=== PATIENT | female | born 1975 | race American Indian/Alaskan Native ===

== ENCOUNTER 2016-12-14 08:34 | Outpatient (CLI) | payer OTHER ==
--- NOTE | 2016-12-14 11:54 | Ultrasound Report ---
RIGHT BREAST ULTRASOUND: 12/14/16 08:34:00 CLINICAL: Right nipple discharge. A surgical duct excision is planned. COMPARISON: 11/29/16 right mammogram. FINDINGS: Ultrasound of the right breast(including all four quadrants and the retroareolar area) was performed. Moderate duct ectasia is identified in the lower outer quadrant. Branching dilated ducts at 8:30 o'clock 3 cm from the nipple contain either echogenic debris or mass. No definitive blood flow is identified by color Doppler. The longest duct containing echogenic material or mass measures 3 cm in length. IMPRESSION: Moderate duct ectasia and intraductal debris versus mass. BI-RADS 4--Suspicious RECOMMENDATION: Surgical excisional biopsy because of the proximity of the dilated ducts to the nipple. I discussed the findings and my recommendation with Dr. Best on 12/14/16.
== END 2016-12-14 08:35 | disposition home or self-care (01) ==
LOC: SPVWC 08:34
PROVIDERS: ATTEND Surgery
DX: N64.52 Nipple discharge (principal)

== ENCOUNTER 2017-01-05 06:14 | Day surgery (SDC) | payer OTHER ==
[~2017-01-05 06:14] MED LIST: NACL 0.9% 1000 ML 1,000 ML IV SCH; PEPCID PO NR; VERSED IV NR
[2017-01-05] MEDS ORDERED: XYLOCAINE MPF 2% ONE (06:34)
[2017-01-05] MEDS ORDERED: DIPRIVAN 10 MG/ML IV ONE (06:34)
[2017-01-05] MEDS ORDERED: DILAUDID ONE (06:35)
--- NOTE | 2017-01-05 06:52 | Anesthesia Day of Surgery ---
Anesthesia Day of Surgery - Day of Surgery Patient Examined: Yes Patient H&P Reviewed: Yes Patient is NPO: Yes
--- NOTE | 2017-01-05 06:54 | Anesthesia Consultation ---
Anesthesia Consult and Med Hx - Airway Anesthetic Teeth Evaluation: Good, Bridges ROM Head & Neck: Adequate Mental/Hyoid Distance: Adequate Mallampati Class: Class II Intubation Access Assessment: Probably Good - Pulmonary Exam CTA: Yes - Cardiac Exam Cardiac Exam: RRR - Pre-Operative Health Status ASA Pre-Surgery Classification: ASA2 Proposed Anesthetic Plan: General - Pulmonary Hx Smoking: No Hx Sleep Apnea: No - Cardiovascular System Hx Heart Murmur: Yes (hx of) - Central Nervous System Hx Psychiatric Problems: No - Endocrine Hx Hypothyroidism: Yes - Hematic Hx Anemia: Yes (BEFORE VIVI IN 2014) - Other Systems Hx Cancer: No - Additional Comments Anesthesia Medical History Comments: Npo after MN. Pt states PONV after hysterectomy. Hypothyroidism.
[2017-01-05] MEDS ORDERED: TRANSDERM-SCOP TD NR (07:00)
[2017-01-05] MEDS ORDERED: XYLOCAINE 1% 20 mL ONE (07:27)
[2017-01-05] MEDS ORDERED: MARCAINE 0.25% INFILTRATI ONE ×2 (07:27→08:29)
[2017-01-05] MEDS ORDERED: ZOFRAN IV PRN (07:49)
[2017-01-05] MEDS ORDERED: NORCO 5/325 PO PRN ×2 (07:49→10:58)
[2017-01-05] MEDS ORDERED: DILAUDID IV PRN (07:49)
[2017-01-05] MEDS ORDERED: ANCEF/STERILE WATER 2 GM/20 ML 2 GM/20 ML SYRINGE IV NR (08:00)
[2017-01-05] MEDS ORDERED: XYLOCAINE 1% 20 mL INFILTRATI ONE (08:30)
[2017-01-05] MEDS ORDERED: NACL 0.9% IR ONE (08:30)
--- NOTE | 2017-01-05 09:39 | Short Stay Summary ---
Short Stay Documentation Date of service: 01/05/17 - History H&P: obtained from office - Allergies and Medications Current Medications: Allergies No Known Allergies Allergy (Verified 01/04/17 13:40) Home Medications Medication Instructions Recorded Confirmed Last Taken Type Estradiol [Estrace] 1 mg PO QDAY 12/30/16 01/05/17 01/04/17 History Levothyroxine [Synthroid] 100 mcg PO QAM 12/30/16 01/05/17 01/05/17 History HYDROcodone/APAP 5-325 [[place] 1 each PO Q6HR PRN #30 tablet 01/05/17 Unknown Rx 5/325] Active Medications Famotidine (Pepcid) 20 mg PO PREOP NR Stop: 01/05/17 23:01 Last Admin: 01/05/17 07:47 Dose: 20 mg Hydromorphone HCl (Dilaudid) 0.5 mg IV Q10MIN PRN PRN Reason: Pain , Severe (7-10) Stop: 01/05/17 15:00 Sodium Chloride (Nacl 0.9% 1000 Ml) 1,000 mls @ 75 mls/hr IV DIRECT DOM Last Admin: 01/05/17 07:43 Dose: 75 mls/hr Midazolam HCl (Versed) 2 mg IV PREOP NR Stop: 01/05/17 23:59 Last Admin: 01/05/17 07:52 Dose: 2 mg Scopolamine (Transderm-Scop) 1 each TD PREOP NR Stop: 01/05/17 22:47 Last Admin: 01/05/17 07:47 Dose: 1 each - Brief post op/procedure progress note Date of procedure: 01/05/17 Pre-op diagnosis: Right bloody nipple discharge Post-op diagnosis: same Procedure: Right nipple terminal duct excisional biopsy Anesthesia: GETA Findings: Right nipple discharge at the 9:00 position with terminal duct excisional biopsy performed Surgeon: RUSLAN BUSTILLO Estimated blood loss: minimal Pathology: list (right nipple terminal duct excisional biopsy) Specimen disposition: to lab Condition: stable - Disposition Condition at discharge: Good Disposition: DC-01 TO HOME OR SELFCARE Short Stay Discharge Plan Activity: other (no heavy lifting) Diet: regular Wound: other (keep incision clean and dry; may shower in 24 hours; no baths, pools or lakes; do not rub or scrub incision) Follow up with: PRIMARY MD ANIL [Primary Care Provider] - 7 Days RUSLAN BUSTILLO MD [Staff Physician] - 7 Days Prescriptions: HYDROcodone/APAP 5-325 [[place] 5/325] 1 each PO Q6HR PRN #30 tablet PRN Reason: Pain
--- NOTE | 2017-01-05 09:46 | Operative Report ---
Operative Report Operative Report: Date of procedure: 01/05/2017 Pre-operative diagnosis: Right bloody nipple discharge Post-operative diagnosis: Same Procedure name(s): Right nipple terminal duct excisional biopsy Surgeon: Alma Best M.D. Anesthesia: Gen. Findings: Known right nipple discharge at the 9 o'clock position: Complications: None Estimated blood loss: Minimal disposition: PACU in good condition Indications for operative procedure: This is a premenopausal 41-year-old -[place] lady with recent findings of right spontaneous bloody nipple discharge. Patient had right diagnostic mammogram and ultrasound with findings of probable debris within dilated ducts of the right nipple and recommendation for excision. Patient wished to proceed with the above procedure. Procedure in detail: The patient was taken to the operating room and was laid supine. Gen. anesthesia was administered. The right breast was prepped and draped in the normal sterile operative fashion. Timeout was performed. Discharge was noted without palpation. A lacrimal probe was inserted into the duct with discharge. A periareolar incision was made with 15 blade knife with dissection taken down to the subcutaneous tissues. First began with dissecting breast tissue posterior to the nipple and taken down posteriorly. The duct of concern was identified and dissected free with the aid of Bovie cautery. Specimen was marked noting the terminal duct. Hemostasis was obtained. Breast cavity was then anesthetized with 1% lidocaine and 0.25% Marcaine. Breast cavity was irrigated and suctioned. The subcutaneous tissues were approximated and closed using interrupted 3-0 Vicryl and skin brought together and closed using a running 4-0 Monocryl followed by skin affix. She tolerated surgery very well and was awakened from anesthesia without any complication and transferred to PACU in good condition.
[2017-01-05] MEDS ORDERED: DECADRON ONE (10:09)
[2017-01-05] MEDS ORDERED: ZOFRAN ONE (10:09)
--- NOTE | 2017-01-05 10:20 | Post Anesthesia Evaluation ---
- Post Anesthesia Evaluation Patient Participated: Yes Airway Patent: Yes Stable Respiratory Function: Yes Nausea/Vomiting: No Temp > 96.8F: Yes Pain Manageable: Yes Adequeate Hydration: Yes Anesthesia Complications: No Block Receding Appropriately: Not Applicable Patient on Ventilator: No
[2017-01-05 11:12] VITALS: BP 106/62
== END 2017-01-05 12:00 | disposition home or self-care (01) ==
LOC: OR 06:14
PROVIDERS: ATTEND Surgery
DX: N64.52 Nipple discharge (principal); E03.9 Hypothyroidism, unspecified; D64.9 Anemia, unspecified; Z79.899 Other long term (current) drug therapy; Z90.710 Acquired absence of both cervix and uterus; Z98.890 Other specified postprocedural states; Z80.3 Family history of malignant neoplasm of breast
CPT/HCPCS: 19120; 88307; J0690; J1100; J1170; J2250; J2405; J2704; J7030

== ENCOUNTER 2017-07-19 08:12 | Outpatient (CLI) | payer OTHER ==
--- NOTE | 2017-07-19 09:10 | Mammography Report ---
BILATERAL DIGITAL SCREENING MAMMOGRAM with CAD: 07/19/17 08:12:00 CLINICAL: Routine screening.Six month status post right benign duct excision. COMPARISON:11/29/16 right mammogram and 07/13/16 lateral screening mammogram. FINDINGS: The breasts are heterogeneously dense, which may obscure small masses.Minimal right postsurgical scar. No mass, architectural distortion or suspicious calcifications. IMPRESSION: No mammographic evidence of malignancy. BI-RADS CATEGORY: 1 - - Negative RECOMMENDATION: Routine mammographic screening in one year. COMMENT: Patient follow-up letters are generated by our [employer] application.
== END 2017-07-19 08:13 | disposition home or self-care (01) ==
LOC: SPVWC 08:12
PROVIDERS: ATTEND Surgery
DX: Z12.31 Encounter for screening mammogram for malignant neoplasm of breast (principal); E78.00 Pure hypercholesterolemia, unspecified; D64.9 Anemia, unspecified
CPT/HCPCS: 77067; G0202

== ENCOUNTER 2018-08-08 08:01 | Outpatient (CLI) | payer OTHER ==
--- NOTE | 2018-08-08 08:47 | Mammography Report ---
BILATERAL DIGITAL SCREENING MAMMOGRAM with CAD : 08/08/18 08:01:00 CLINICAL: Routine screening.Status post right benign terminal duct excision. COMPARISON:07/19/17 FINDINGS: The breasts are heterogeneously dense, which may obscure small masses.Mild right retroareolar postsurgical scar. No mass, suspicious architectural distortion or suspicious calcifications. IMPRESSION: No mammographic evidence of malignancy. BI-RADS CATEGORY: 2 -- Benign RECOMMENDATION: Routine mammographic screening in one year. COMMENT: Patient follow-up letters are generated by our [employer] application.
== END 2018-08-08 08:02 | disposition home or self-care (01) ==
LOC: SPVWC 08:01
PROVIDERS: ATTEND Surgery
DX: Z12.31 Encounter for screening mammogram for malignant neoplasm of breast (principal); E78.00 Pure hypercholesterolemia, unspecified; E03.9 Hypothyroidism, unspecified; Z90.710 Acquired absence of both cervix and uterus; Z90.722 Acquired absence of ovaries, bilateral; Z90.89 Acquired absence of other organs
CPT/HCPCS: 77067

== ENCOUNTER 2020-01-29 07:59 | Outpatient (CLI) | payer OTHER ==
--- NOTE | 2020-01-29 08:53 | Mammography Report ---
DIGITAL SCREENING MAMMOGRAM WITH CAD, 01/29/2020 INDICATION: Routine screening mammography. TECHNIQUE: Digital bilateral 2D mammography was obtained in the craniocaudal and mediolateral obliq ue projections. This examination was interpreted with the benefit of Computer-Aided Detection analysi s. COMPARISON: 07/19/2017. FINDINGS: Breast Density: The breasts are heterogeneously dense, which may obscure small masses. There is no evidence of dominant mass, suspicious calcifications or architectural distortion in eithe r breast. Postsurgical scarring more prominent on the right. IMPRESSION: Follow up recommendation: Routine yearly BI-RADS Category 2: Benign. A "normal" or negative report should not discourage follow up or biopsy of a clinically significant f inding. A written summary of these findings will be mailed to the patient. The patient will be entered into a mammography reporting system which will generate a reminder letter for the patient's next appointmen t at the appropriate interval. The [employer] recommends yearly mammograms starting at age 40 and continuing as l shala as a woman is in good health. Breast MRI is recommended for women with an approximate 20-25% or greater lifetime risk of breast cancer, including women with a strong family history of breast or ova elder cancer or who have been treated for Hodgkin's disease. Signer Name: Cornelius Pan MD Signed: 01/29/2020 8:49 AM Workstation Name: [email or web address]
== END 2020-01-29 08:00 | disposition home or self-care (01) ==
LOC: SPVWC 07:59
PROVIDERS: ATTEND Surgery
DX: Z12.31 Encounter for screening mammogram for malignant neoplasm of breast (principal); N64.89 Other specified disorders of breast; Z98.890 Other specified postprocedural states
CPT/HCPCS: 77067

== ENCOUNTER 2021-03-03 08:14 | Outpatient (CLI) | payer OTHER ==
--- NOTE | 2021-03-03 13:30 | Mammography Report ---
BILATERAL DIGITAL SCREENING MAMMOGRAM WITH CAD WITH TOMOSYNTHESIS HISTORY: Screening mammogram. TECHNIQUE: Routine digital mammographic imaging performed. This examination was interpreted with aneesh rodriguez benefit of Computer-aided Detection analysis. Tomosynthesis images were acquired and reviewed. COMPARISON: 01/29/2020, 08/08/2018, 07/19/2017. FINDINGS: Breast Density: heterogeneously dense breast parenchymal pattern which somewhat lessens the sensitivi ty of the evaluation. Digital CC and MLO views demonstrate no mammographic evidence of malignancy. Stable mild post proced ural changes bilaterally. IMPRESSION: No mammographic evidence of malignancy. If the clinical examination remains stable, recommend bilate ral mammogram in approximately one year. BIRADS 2: Benign Finding(s). FURTHER INFORMATION: According to the [employer], yearly mammograms are recommend ed starting at age 40 and continuing as long as a woman is in good health. Clinical Breast Exams shou ld be part of a periodic health exam-about every 3 years for women in their 20s and 30s and every yea r for women 40 and over. Breast self exam is an option for women starting in their 20s. Any breast ch jaycob noted on a breast self exam should be reported promptly to the patient's healthcare provider. Br east MRI is recommended for women with an approximately 20-25% or greater lifetime risk of breast can cer, including women with a strong family history of breast or ovarian cancer and women who have been treated for Hodgkin's disease. A negative Mammography report should not discourage follow up or biopsy of a clinically significant f inding and/or abnormality. Dense breast tissue may obscure small neoplasms. The patient will be entered into a reminder system with a target due date for the next screening mamm ogram. Signer Name: Alan Sam MD Signed: 03/03/2021 1:26 PM Workstation Name: [id number]
== END 2021-03-03 08:15 | disposition home or self-care (01) ==
LOC: SPVWC 08:14
PROVIDERS: ATTEND Surgery
DX: Z12.31 Encounter for screening mammogram for malignant neoplasm of breast (principal)
CPT/HCPCS: 77063; 77067